=== PATIENT | female | born 1995 | race Two or more races ===

== ENCOUNTER 2017-12-15 13:08 | Emergency (ER) | payer SELFPAY ==
[~2017-12-15] VITALS: Ht 165.1 cm; Wt 72.6 kg
[2017-12-15 13:10] VITALS: BP 126/79
[2017-12-15 15:12] LABS: MONOTEST NEGATIVE (NEGATIVE)
== END 2017-12-15 15:22 | disposition home or self-care (01) ==
LOC: ER 13:10
DX: J02.8 Acute pharyngitis due to other specified organisms (principal); B97.89 Other viral agents as the cause of diseases classified elsewhere; J45.909 Unspecified asthma, uncomplicated
CPT/HCPCS: 36415; 86308; 87070; 87880; 99284; A4606; Z7610; 86403-TC